=== PATIENT | male | born 1940 | race Caucasian/White ===

== ENCOUNTER 2019-05-13 09:22 | Outpatient (CLI) | payer MEDICARE, MEDICAID ==
[~2019-05-13 09:22] MED LIST: BACL10TA PO; BARIUM SULFATE 1,900 ML ORAL.SUSP ONE; BARIUM SULFATE 340 ML SUSP.RECON***PROCEDURE AREA ONLY**DONT ENTER PO ONE; DIAZ5TAB PO; FAMO-128 PO; GABA-532 PO; SIMETHICONE/SOD BICARB/CIT AC PACKET PO ONE
== END 2019-05-13 23:59 | disposition home or self-care (01) ==
LOC: RAD 09:22
PROVIDERS: ATTEND Surgery
DX: K44.9 Diaphragmatic hernia without obstruction or gangrene (principal); K21.9 Gastro-esophageal reflux disease without esophagitis
CPT/HCPCS: 74241